=== PATIENT | female | born 1985 | race Caucasian/White ===

== ENCOUNTER 2022-01-24 11:34 | Inpatient (IN) | payer SELFPAY ==
[2022-01-24 12:50] LABS: #Eosinphils 0.1 thou/uL (0.0-0.7); #Lymphocytes 1.6 thou/uL (1.20-3.40); #Monocytes 0.5 thou/uL (0.11-0.59); #Neutrophils 2.7 thou/uL (1.40-6.50); %Basophils 0.6 % (0.0-1.0); %Eosinophils 2.2 % (0.0-10.0); %Lymphocytes 31.7 % (21.0-51.0); %Monocytes 10.8 % (0.0-10.0); %Neutrophils 54.7 % (42.0-75.0); Hemoglobin 13.2 g/dL (12.0-16.0); Mean Corpuscular HGB CONC 31.9 g/dL (32.0-36.0); Mean Corpuscular Hemoglobin 26.4 pg (27.0-31.0); Mean Corpuscular Volume 82.6 fL (78.0-98.0); Mean Platelet Volume 9.4 fL (7.4-10.4); Platelet Count 174 thou/uL (130-400); RBC Distribution Width 13.1 % (11.5-14.5); Red Blood Cell (RBC) Count 5.01 mill/uL (4.20-5.40)
[2022-01-24 13:20] LABS: ALT (SGPT) 26 U/L (8-55); AST (SGOT) 36 U/L (5-34); Albumin 3.7 g/dL (3.5-5.0); Alkaline Phosphatase 190 U/L (40-110); Anion Gap 16 mmol/L (10-20); BUN (Urea Nitrogen) 16 mg/dL (7.0-18.7); Bilirubin, Total 0.4 mg/dL (0.2-1.2); Calc. Creatinine Clearance 0 mL/min (70-130); Calcium 9.2 mg/dL (7.8-10.44); Carbon Dioxide 21 mmol/L (22-29); Chloride 106 mmol/L (98-107); Estimated GFR 125; Globulin 3.7 g/dL (2.4-3.5); Glucose 121 mg/dL (70-105); Potassium 4.9 mmol/L (3.5-5.1); Protein, Total 7.4 g/dL (6.0-8.3); Sodium 138 mmol/L (136-145)
[2022-01-24 13:34] LABS: Thyroid Stimulating Hormone Less than 0.0025 uIU/mL (0.35-4.94)
[2022-01-24] MEDS ORDERED: Ondansetron PF 4 MG/2 ML Vial ONE (13:34)
[2022-01-24 13:37] LABS: Free T4 (Free Thyroxine) Greater than 5.00 ng/dL (0.70-1.48)
[2022-01-24] MEDS ORDERED: PROPRANOLOL HCL IVP SCH ×2 (15:15→15:30)
[2022-01-24] MEDS ORDERED: WATER IVP SCH ×2 (15:15→15:30)
[2022-01-24] MEDS ORDERED: DEXTROSE 5% IVP SCH ×2 (15:15→15:30)
[2022-01-24] MEDS ORDERED: Enoxaparin Sodium 40 MG/0.4 ML SYRINGE SC SCH (16:00)
[2022-01-24] MEDS ORDERED: Hydrocortisone Sod Succ/PF 100 mg/2 ml Vial IVP SCH (16:15)
[2022-01-24 17:58] VITALS: BMI 31.1
[2022-01-24] MEDS ORDERED: Nicotine 21 MG PATCH TOP SCH (20:30)
[2022-01-24] MEDS: Propranolol HCl LA 60 MG CAP PO SCH ×2 (20:46→21:03)
[2022-01-24] MEDS: Hydrocortisone Sod Succ/PF 100 mg/2 ml Vial IVP SCH (21:04)
[2022-01-24] MEDS: Sodium Chloride 0.9% 1,000 ML IV SCH (21:15)
[2022-01-24 23:00] LABS: Bacteria/HPF None Seen HPF (None Seen); Bilirubin Negative (Negative); Blood, Urine Negative (Negative); Clarity Clear (Clear); Glucose, Urine (Dipstick) 500 mg/dL (Negative); Ketone, Urine Trace mg/dL (Negative); Leukocyte Negative Leu/uL (Negative); Nitrite Negative (Negative); Protein, Urine (Dipstick) 30 mg/dL (Neg-Trace); RBC/HPF 0-3 HPF (0-3); WBC/HPF 0-3 HPF (0-3)
[2022-01-24 23:02] LABS: Pregnancy Test - Urine (BHCG) Negative (Negative); Pregu Control Background? CLEAR/WHITE (CLR/WHITE); Pregu Control Bar Appear? YES (CONTROL BAR)
[2022-01-24 23:04] LABS: Urine Culture Reflex No No
[2022-01-25] MEDS: Propranolol HCl LA 60 MG CAP PO SCH ×4 (01:15→13:54)
[2022-01-25] MEDS ORDERED: Acetaminophen 325 MG TAB PO PRN (03:34)
[2022-01-25] MEDS: Hydrocortisone Sod Succ/PF 100 mg/2 ml Vial IVP SCH ×2 (05:50→13:53)
[2022-01-25] MEDS: Sodium Chloride 0.9% 1,000 ML IV SCH ×2 (05:57→13:53)
[2022-01-25] MEDS ORDERED: Enoxaparin Sodium 40 MG/0.4 ML SYRINGE SC SCH (09:00)
[2022-01-25] MEDS: Propylthiouracil 50 MG TAB PO SCH ×2 (10:28→13:54)
[2022-01-25 12:19] VITALS: BP 123/62; TEMP 97.2
== END 2022-01-25 16:47 | disposition home or self-care (01) | DRG 645 ==
LOC: ERS 11:34 → EEVIPCON 11:34 → 2NO 17:18
PROVIDERS: ADMIT Internal Medicine; ATTEND Internal Medicine
DX: E05.91 Thyrotoxicosis, unspecified with thyrotoxic crisis or storm (principal); E66.9 Obesity, unspecified; I48.91 Unspecified atrial fibrillation; Z20.822 Contact with and (suspected) exposure to COVID-19; Z86.718 Personal history of other venous thrombosis and embolism; Z68.31 Body mass index [BMI] 31.0-31.9, adult
CPT/HCPCS: 36415; 71045; 71275; 76536; 80053; 81001; 81025; 83880; 84238; 84439; 84443; 84481; 84484; 85025; 85379; 93005; 93306; J1650; J1720; J1800; J2405; J7050; U0003; U0005

== ENCOUNTER 2022-08-29 11:35 | Emergency (ER) | payer SELFPAY ==
[2022-08-29] MEDS ORDERED: Ketorolac Tromethamine 30 MG/ML VIAL ONE (13:44)
== END 2022-08-29 13:56 | disposition home or self-care (01) ==
LOC: ERS 11:35
DX: K02.9 Dental caries, unspecified (principal); E03.9 Hypothyroidism, unspecified; F17.210 Nicotine dependence, cigarettes, uncomplicated
CPT/HCPCS: 96372; 99282; J1885

== ENCOUNTER 2023-04-02 18:19 | Emergency (ER) | payer SELFPAY ==
[2023-04-02] MEDS ORDERED: Acetaminophen 500 MG TAB ONE (18:45)
[2023-04-02] MEDS ORDERED: Ketorolac Tromethamine 30 MG/ML VIAL ONE (18:45)
[2023-04-02] MEDS ORDERED: cefTRIAXone (ROCEPHIN) 2 GM VIAL ONE (18:46)
[2023-04-02] MEDS ORDERED: Sodium Chloride 0.9% 100 ML ONE (18:47)
[2023-04-02 19:26] LABS: #Eosinphils 0.1 thou/uL (0.0-0.7); #Monocytes 0.8 thou/uL (0.11-0.59); %Basophils 0.2 % (0.0-1.0); %Eosinophils 1.1 % (0.0-10.0); %Monocytes 15.7 % (0.0-10.0); %Neutrophils 38.8 % (42.0-75.0); Hematocrit 39.2 % (36.0-47.0); Hemoglobin 13.3 g/dL (12.0-16.0); Mean Corpuscular HGB CONC 33.9 g/dL (32.0-36.0); Mean Corpuscular Volume 85.6 fl (78.0-98.0); Mean Platelet Volume 11.2 fL (7.4-10.4); Platelet Count 166 10x3/uL (130-400); RBC Distribution Width 11.9 % (11.5-14.5); Red Blood Cell (RBC) Count 4.58 mill/uL (4.20-5.40); White Blood Cell (WBC) Count 5.2 10x3/uL (4.8-10.8)
[2023-04-02 20:07] LABS: ALT (SGPT) 91 U/L (8-55); AST (SGOT) 96 U/L (5-34); Albumin 3.7 g/dL (3.5-5.0); Alkaline Phosphatase 104 U/L (40-110); Anion Gap 13 mmol/L (10-20); BUN (Urea Nitrogen) 12 mg/dL (7.0-18.7); Bilirubin, Total 0.4 mg/dL (0.2-1.2); Calc. Creatinine Clearance 0 mL/min (70-130); Calcium 9.3 mg/dL (7.8-10.44); Carbon Dioxide 23 mmol/L (22-29); Chloride 106 mmol/L (98-107); Estimated GFR 124; Globulin 3.4 g/dL (2.4-3.5); Glucose 101 mg/dL (70-105); Potassium 3.2 mmol/L (3.5-5.1); Protein, Total 7.1 g/dL (6.0-8.3); Sodium 139 mmol/L (136-145)
== END 2023-04-02 20:29 | disposition left against medical advice (07) ==
LOC: ERS 18:19
DX: Z53.21 Procedure and treatment not carried out due to patient leaving prior to being seen by health care provider (principal); F17.210 Nicotine dependence, cigarettes, uncomplicated
CPT/HCPCS: 36415; 80053; 83605; 84702; 85025; 86140; 87040; 96365; 96375; J0696; J1885; J3490

== ENCOUNTER 2023-04-03 10:19 | Emergency (ER) | payer SELFPAY ==
[2023-04-03] MEDS ORDERED: Ibuprofen 200 MG TAB ONE (10:48)
[2023-04-03] MEDS ORDERED: Acetaminophen 500 MG TAB ONE (10:48)
== END 2023-04-03 11:23 | disposition home or self-care (01) ==
LOC: ERS 10:19
DX: H60.92 Unspecified otitis externa, left ear (principal); I10 Essential (primary) hypertension; F17.210 Nicotine dependence, cigarettes, uncomplicated
CPT/HCPCS: 99283

== ENCOUNTER 2023-07-03 08:27 | Emergency (ER) | payer SELFPAY ==
[2023-07-03 09:13] LABS: #Eosinphils 0.1 thou/uL (0.0-0.7); #Monocytes 0.7 thou/uL (0.11-0.59); #Neutrophils 1.7 thou/uL (1.40-6.50); %Basophils 0.4 % (0.0-1.0); %Lymphocytes 46.1 % (21.0-51.0); %Monocytes 14.6 % (0.0-10.0); %Neutrophils 35.7 % (42.0-75.0); Hematocrit 39.1 % (36.0-47.0); Hemoglobin 13.4 g/dL (12.0-16.0); Mean Corpuscular HGB CONC 34.3 g/dL (32.0-36.0); Mean Corpuscular Hemoglobin 29.2 pg (27.0-31.0); Mean Corpuscular Volume 85.2 fl (78.0-98.0); Mean Platelet Volume 11.8 fL (7.4-10.4); Platelet Count 137 10x3/uL (130-400); RBC Distribution Width 11.8 % (11.5-14.5); Red Blood Cell (RBC) Count 4.59 mill/uL (4.20-5.40); White Blood Cell (WBC) Count 4.7 10x3/uL (4.8-10.8)
[2023-07-03 09:20] LABS: BHCG - Serum Negative (NEGATIVE); Pregs Control Background? CLEAR/WHITE (CLR/WHITE); Pregs Control Bar Appear? YES (CONTROL BAR)
[2023-07-03 09:25] LABS: ALT (SGPT) 50 U/L (8-55); AST (SGOT) 52 U/L (5-34); Albumin 3.6 g/dL (3.5-5.0); Alkaline Phosphatase 115 U/L (40-110); Anion Gap 11 mmol/L (10-20); BUN (Urea Nitrogen) 9 mg/dL (7.0-18.7); Bilirubin, Total 0.9 mg/dL (0.2-1.2); Calc. Creatinine Clearance 0 mL/min (70-130); Calcium 9.1 mg/dL (7.8-10.44); Carbon Dioxide 26 mmol/L (22-29); Chloride 106 mmol/L (98-107); Estimated GFR 125; Globulin 3.4 g/dL (2.4-3.5); Glucose 82 mg/dL (70-105); Potassium 3.6 mmol/L (3.5-5.1); Sodium 139 mmol/L (136-145)
== END 2023-07-03 10:27 | disposition home or self-care (01) ==
LOC: ERS 08:27
DX: S22.32XA Fracture of one rib, left side, initial encounter for closed fracture (principal); F17.210 Nicotine dependence, cigarettes, uncomplicated; Z55.6 Problems related to health literacy; X58.XXXA Exposure to other specified factors, initial encounter
CPT/HCPCS: 71260; 80053; 84703; 85025

== ENCOUNTER 2023-10-13 09:33 | Emergency (ER) | payer SELFPAY ==
[2023-10-13] MEDS ORDERED: Acetaminophen/Codeine 30-300mg Tablet ONE (11:01)
[2023-10-13] MEDS ORDERED: Clindamycin 150 MG CAP ONE (11:01)
== END 2023-10-13 11:08 | disposition home or self-care (01) ==
LOC: ERS 09:33
DX: K08.89 Other specified disorders of teeth and supporting structures (principal); F17.210 Nicotine dependence, cigarettes, uncomplicated
CPT/HCPCS: 99282

== ENCOUNTER 2023-10-17 16:28 | Emergency (ER) | payer SELFPAY ==
[2023-10-17] MEDS ORDERED: Dexamethasone 4 MG TAB ONE (18:38)
== END 2023-10-17 19:57 | disposition home or self-care (01) ==
LOC: ERS 16:28
DX: R06.2 Wheezing (principal); F17.210 Nicotine dependence, cigarettes, uncomplicated
CPT/HCPCS: 99284; J8540

== ENCOUNTER 2024-02-13 12:30 | Emergency (ER) | payer SELFPAY ==
[2024-02-13 14:03] LABS: #Basophils 0.04 10x3/uL (0.0-0.2); %Basophils 0.5 % (0.0-1.0); %Eosinophils 0.9 % (0.0-10.0); %Lymphocytes 35.9 % (21.0-51.0); %Monocytes 9.4 % (0.0-10.0); Hematocrit 40.6 % (36.0-47.0); Mean Corpuscular HGB CONC 34.5 g/dL (32.0-36.0); Mean Corpuscular Hemoglobin 31.6 pg (27.0-31.0); Mean Corpuscular Volume 91.6 fL (78.0-98.0); Platelet Count 190 10x3/uL (130-400); RBC Distribution Width 12.1 % (11.5-14.5); Red Blood Cell (RBC) Count 4.43 mill/uL (4.20-5.40)
[2024-02-13 14:18] LABS: BHCG - Serum Negative (NEGATIVE); Pregs Control Background? CLEAR/WHITE (CLR/WHITE); Pregs Control Bar Appear? YES (CONTROL BAR)
[2024-02-13 14:21] LABS: ALT (SGPT) 19 U/L (8-55); AST (SGOT) 18 U/L (5-34); Albumin 3.8 g/dL (3.5-5.0); Alkaline Phosphatase 134 U/L (40-110); Anion Gap 13 mmol/L (10-20); BUN (Urea Nitrogen) 14 mg/dL (7.0-18.7); Bilirubin, Total 0.4 mg/dL (0.2-1.2); Calc. Creatinine Clearance 0 mL/min (70-130); Calcium 9.3 mg/dL (7.8-10.44); Carbon Dioxide 19 mmol/L (22-29); Chloride 108 mmol/L (98-107); Estimated GFR 122; Globulin 3.6 g/dL (2.4-3.5); Glucose 87 mg/dL (70-105); Potassium 3.9 mmol/L (3.5-5.1); Protein, Total 7.4 g/dL (6.0-8.3); Sodium 136 mmol/L (136-145)
[2024-02-13 14:27] LABS: Troponin I Less than 0.010 ng/mL (< 0.028)
[2024-02-13 14:45] LABS: Free T4 (Free Thyroxine) 1.25 ng/dL (0.70-1.48); Thyroid Stimulating Hormone Less than 0.0083 uIU/mL (0.35-4.94)
== END 2024-02-13 14:04 | disposition left against medical advice (07) ==
LOC: ERS 12:30
DX: Z53.21 Procedure and treatment not carried out due to patient leaving prior to being seen by health care provider (principal)
CPT/HCPCS: 36415; 80053; 84439; 84443; 84481; 84484; 84703; 85025; 93005

== ENCOUNTER 2024-12-16 03:53 | Emergency (ER) | payer SELFPAY ==
[2024-12-16] MEDS ORDERED: Acetaminophen 500 MG TAB ONE (04:05)
[2024-12-16] MEDS ORDERED: Ibuprofen 200 MG TAB ONE (04:05)
[2024-12-16] MEDS ORDERED: Ondansetron PF 4 MG/2 ML Vial ONE (05:20)
[2024-12-16] MEDS ORDERED: Famotidine/PF 20 mg/2ml Vial ONE (05:20)
[2024-12-16 05:25] LABS: #Basophils Less than 0.03 10x3/uL (0.0-0.2); #Eosinophils 0.09 10x3/uL (0.0-0.7); #Monocytes 0.52 10x3/uL (0.11-0.59); #Neutrophils 2.45 10x3/uL (1.40-6.50); %Basophils 0.6 % (0.0-1.0); %Eosinophils 2.7 % (0.0-10.0); %Lymphocytes 8.3 % (21.0-51.0); %Monocytes 15.5 % (0.0-10.0); %Neutrophils 72.9 % (42.0-75.0); Hematocrit 42.2 % (36.0-47.0); Hemoglobin 14.3 g/dL (12.0-16.0); Mean Corpuscular Hemoglobin 28.9 pg (27.0-31.0); Mean Corpuscular Volume 85.3 fL (78.0-98.0); Platelet Count 154 10x3/uL (130-400); Red Blood Cell (RBC) Count 4.95 mill/uL (4.20-5.40); White Blood Cell (WBC) Count 3.36 10x3/uL (4.8-10.8)
[2024-12-16 05:48] LABS: ALT (SGPT) 15 U/L (Less than 34); AST (SGOT) 30 U/L (11-34); Albumin 3.5 g/dL (3.1-4.5); Alkaline Phosphatase 69 U/L (40-110); Anion Gap 13 mmol/L (10-20); BUN (Urea Nitrogen) 10 mg/dL (7.0-18.7); Bilirubin, Total 0.3 mg/dL (0.3-1.2); Calc. Creatinine Clearance 0 mL/min (70-130); Calcium 8.5 mg/dL (7.8-10.44); Carbon Dioxide 16 mmol/L (22-29); Chloride 108 mmol/L (98-107); Globulin 4.4 g/dL (2.4-3.5); Glucose 93 mg/dL (70-105); Lipase 19 U/L (8-78); Magnesium 1.8 mg/dL (1.6-2.6); Potassium 3.8 mmol/L (3.5-5.1); Sodium 133 mmol/L (136-145)
[2024-12-16 06:13] LABS: Bacteria/HPF None Seen HPF (None Seen); CAUTI Indications for Culture Fever or rigors; Glucose, Urine (Dipstick) Normal (Negative); Leukocyte Negative Leu/uL (Negative); Protein, Urine (Dipstick) Negative (Neg-Trace); RBC/HPF 0-3 HPF (0-3); Specific Gravity, Urine 1.021 (1.002-1.036); WBC/HPF 0-3 HPF (0-3)
[2024-12-16 06:32] LABS: Urine Culture Reflex No No
== END 2024-12-16 08:01 | disposition home or self-care (01) ==
LOC: ERS 03:53
DX: B34.9 Viral infection, unspecified (principal); F17.210 Nicotine dependence, cigarettes, uncomplicated; F17.290 Nicotine dependence, other tobacco product, uncomplicated
CPT/HCPCS: 71045; 80053; 81001; 83605; 83690; 83735; 84484; 84702; 85025; 87040; 87081; 87428; 87430; 93005; 96374; 96375; J1308; J2405

== ENCOUNTER 2025-02-18 15:05 | Emergency (ER) | payer OTHER, SELFPAY | END 2025-02-18 16:26 | disposition home or self-care (01) | LOC: ERS 15:05 | DX: J06.9 Acute upper respiratory infection, unspecified (principal); F17.210 Nicotine dependence, cigarettes, uncomplicated; Z79.899 Other long term (current) drug therapy | CPT/HCPCS: 87428; 99283 ==